=== PATIENT | female | born 1980 | race American Indian/Alaskan Native ===

== ENCOUNTER 2016-06-25 20:43 | Emergency (ER) | payer MEDICAID ==
[2016-06-25 21:54] LABS: Basophils % (Auto) 1.1 % (0.0-1.8); Eosinophils % (Auto) 5.3 % (0.0-4.3); Hematocrit 37.1 % (30.3-42.9); Hemoglobin 11.9 gm/dl (10.1-14.3); Mean Corpuscular HGB Conc 32 % (30-34); Mean Corpuscular Hemoglobin 25 pg (28-32); Mean Corpuscular Volume 78 fl (79-97); Platelet Count 322 K/mm3 (140-440); Red Blood Count 4.73 M/mm3 (3.65-5.03); Red Cell Distribution Width 24.2 % (13.2-15.2); White Blood Count 5.7 K/mm3 (4.5-11.0)
[2016-06-25 21:59] LABS: Anion Gap 18 mmol/L; BUN/Creatinine Ratio 24.28; Blood Urea Nitrogen 17 mg/dL (7-17); Calcium 8.7 mg/dL (8.4-10.2); Carbon Dioxide 24 mmol/L (22-30); Chloride 101.2 mmol/L (98-107); Glucose 88 mg/dL (65-100); Potassium 3.9 mmol/L (3.6-5.0); Sodium 139 mmol/L (137-145)
[2016-06-26 05:29] LABS: Urine Drugs of Abuse Note Disclamer
[2016-06-26 05:57] LABS: Bilirubin,Urine NEG (Negative); Blood,Urine NEG (Negative); Ketones,Urine NEG (Negative); Leukocyte Esterase,Urine NEG (Negative); Mucus,Urine 3+ /HPF; Nitrite,Urine NEG (Negative); Protein,Urine <15 mg/dL mg/dL (Negative); Urobilinogen,Urine < 2.0 mg/dL (<2.0)
[2016-06-26 11:14] VITALS: BP 100/58
[2016-06-26] MEDS ORDERED: TYLENOL ONE (11:16)
[2016-06-26] MEDS ORDERED: TYLENOL PO ONE (11:31)
--- NOTE | 2016-06-26 15:01 | Consultation ---
History of Present Illness - Reason for Consult Consult date: 06/26/16 Reason for consult: psychiatric evaluation - Chief Complaint Chief complaint: "There's so much" Joellen is a 36 year old black female seen in the ER for psychiatric consultation. She called EMS for compliants of hearing voices to harm herself. She reports anergia, amotivation, anhedonia, and a history of bipolar disorder. She reports smoking more crack than usual with intention to . She was discharged from [facility] 06/22/16. She has been staying at a motel and was unable to stay for lack of funds. She reports homelessness and her health are stressors. She reports giving her 7 year old son to her friend, and the friend gave him to [facility]. Previous diagnoses are bipolar disorder, PTSD medication trials: unknown no SA prior to this episode Medications and Allergies Allergies Allergy/AdvReac Type Severity Reaction Status Date / Time No Known Allergies Allergy Verified 01/22/15 10:12 Home Medications Medication Instructions Recorded Confirmed Last Taken Type Unobtainable 06/26/16 06/26/16 Unknown History Past psychiatric history - Past Medical History Past Medical History: other (blood disorder, hereditary spherocytosis, receives regular transfusions) - past Psychiatric treatment and history Psych: Bipolar, Depression - Social History Social history: other (denies intravenous drug use) Mental Status Exam - Vital signs Last Vital Signs Temp 98.3 F 06/26/16 11:13 Pulse 80 06/26/16 11:13 Resp 16 06/26/16 11:13 BP 100/58 06/26/16 11:13 Pulse Ox 100 06/26/16 11:13 - Exam Orientation: time, place, person Affect: depressed Mood: congruent with affect Thought content: other (suicidal ideation) Thought Process: Intact Perceptions: auditory, command, hallucinations Speech: normal rate and pattern Concentration: focused Motor activity: normal Level of consciousness: alert Memory: Intact Sleep Symptoms: Difficulty Falling Asleep Appetite: decreased Interaction: cooperative Results Result Diagrams: 06/25/16 21:29 06/25/16 21:29 Abnormal lab results 06/25/16 Range/Units 21:29 MCV 78 L (79-97) fl MCH 25 L (28-32) pg RDW 24.2 H (13.2-15.2) % Curry % (Auto) 11.4 H (0.0-7.3) % Eos % (Auto) 5.3 H (0.0-4.3) % All other labs normal. Assessment and Plan Assessment and plan: Impression: suicidal gesture by smoking more crack than usual and command hallucinations to harm herself bipolar disorder, current episode depressed cocaine use disorder Plan: 1013 and transfer to inpatient psychiatric facility. Will start atypical antipsychotic if she does not transfer within the day - Psychiatric problem (1) Bipolar 1 disorder, depressed Current Visit: Yes Status: Acute (2) Cocaine use Current Visit: Yes Status: Acute
--- NOTE | 2016-07-09 23:47 | Emergency Department Report ---
ED Psych HPI - General Chief Complaint: Psych Stated Complaint: MH EVAL/SUICIDAL/DRUG USE Time Seen by Provider: 06/26/16 03:58 Source: patient Mode of arrival: Ambulatory - History of Present Illness Initial Comments: Pt is a 36 yr old female with a h/o bipolar disorder and PTSD who presents to the ED for suicidal ideations. Pt states she is hearing voices that are telling herself to hurt herself. Pt reports she is a drug user and uses crack daily and wishes to . Pt was recently seen at a psych facility and discharge. Pt now reports she can't afford to stay at a local hotel and cannot care for her son. Otherwise no other complaints. MD Complaint: suicidal ideation, feels depressed - Related Data Home Medications Medication Instructions Recorded Confirmed Last Taken Citalopram [celeXA] 20 mg PO QDAY 06/26/16 06/26/16 Unknown Docusate Sodium [Colace] 100 mg PO BID PRN 06/26/16 06/26/16 Unknown Ferrous Sulfate [Feosol] 325 mg PO TID 06/26/16 06/26/16 Unknown Folic Acid [Folvite] 1 mg PO QDAY 06/26/16 06/26/16 Unknown Hydroxyzine HCl 25 mg PO TID 06/26/16 06/26/16 Unknown OLANzapine [ZyPREXA] 15 mg PO QHS 06/26/16 06/26/16 Unknown traZODone [Desyrel] 100 mg PO QHS 06/26/16 06/26/16 Unknown Allergies Allergy/AdvReac Type Severity Reaction Status Date / Time No Known Allergies Allergy Verified 01/22/15 10:12 ED Review of Systems ROS: Stated complaint: MH EVAL/SUICIDAL/DRUG USE Other details as noted in HPI Comment: All other systems reviewed and negative ED Past Medical Hx - Past Medical History Previous Medical History?: Yes Hx Sickle Cell Disease: (trait) Hx Psychiatric Treatment: Yes (BIPOLAR/PTSD) Additional medical history: hereditary spherocystosis; sponteaneous pneumothroax - Surgical History Past Surgical History?: Yes Additional Surgical History: lung repair (collaspe); c section x 2 - Social History Smoking Status: Current Every Day Smoker Substance Use Type: Cocaine, Marijuana - Medications Home Medications: Home Medications Medication Instructions Recorded Confirmed Last Taken Type Citalopram [celeXA] 20 mg PO QDAY 06/26/16 06/26/16 Unknown History Docusate Sodium [Colace] 100 mg PO BID PRN 06/26/16 06/26/16 Unknown History Ferrous Sulfate [Feosol] 325 mg PO TID 06/26/16 06/26/16 Unknown History Folic Acid [Folvite] 1 mg PO QDAY 06/26/16 06/26/16 Unknown History Hydroxyzine HCl 25 mg PO TID 06/26/16 06/26/16 Unknown History OLANzapine [ZyPREXA] 15 mg PO QHS 06/26/16 06/26/16 Unknown History traZODone [Desyrel] 100 mg PO QHS 06/26/16 06/26/16 Unknown History ED Physical Exam - General Limitations: No Limitations General appearance: alert, in no apparent distress - Head Head exam: Present: atraumatic, normocephalic - Eye Eye exam: Present: normal appearance - ENT ENT exam: Present: mucous membranes moist - Neck Neck exam: Present: normal inspection - Respiratory Respiratory exam: Present: normal lung sounds bilaterally. Absent: respiratory distress - Cardiovascular Cardiovascular Exam: Present: regular rate, normal rhythm. Absent: systolic murmur, diastolic murmur, rubs, gallop - GI/Abdominal GI/Abdominal exam: Present: soft, normal bowel sounds - Extremities Exam Extremities exam: Present: normal inspection - Back Exam Back exam: Present: normal inspection - Neurological Exam Neurological exam: Present: alert, oriented X3 - Psychiatric Psychiatric exam: Present: depressed, flat affect, suicidal ideation. Absent: manic, homicidal ideation - Skin Skin exam: Present: warm, dry, intact, normal color. Absent: rash ED Course Vital Signs 06/25/16 06/26/16 06/26/16 21:20 03:22 07:35 Temperature 98.2 F 98.0 F Pulse Rate 80 62 Respiratory 18 18 16 Rate Blood Pressure 115/88 105/61 Blood Pressure [Left] O2 Sat by Pulse 100 100 Oximetry 06/26/16 11:13 Temperature 98.3 F Pulse Rate 80 Respiratory 16 Rate Blood Pressure Blood Pressure 100/58 [Left] O2 Sat by Pulse 100 Oximetry ED Medical Decision Making - Lab Data Result diagrams: 06/25/16 21:29 06/25/16 21:29 - Medical Decision Making Psych consult appreciated Pt to be transferred to inpatient facility, if not they will start an anti- psychotic medication Critical care attestation.: If time is entered above; I have spent that time in minutes in the direct care of this critically ill patient, excluding procedure time. ED Disposition Clinical Impression: Depression, Suicidal ideation, Drug abuse Disposition: DC/TX PSY HOSP/PSY UNIT Is pt being admited?: No Condition: Stable
== END 2016-06-26 15:15 ==
LOC: EEVIPCON 20:43 → ED 20:43
DX: R45.851 Suicidal ideations (principal); F32.9 Major depressive disorder, single episode, unspecified; F19.10 Other psychoactive substance abuse, uncomplicated; F31.9 Bipolar disorder, unspecified; F12.10 Cannabis abuse, uncomplicated; F14.10 Cocaine abuse, uncomplicated; F17.200 Nicotine dependence, unspecified, uncomplicated
CPT/HCPCS: 36415; 80048; 80307; 81001; 81025; 85025; 99284; G0480; 80320